=== PATIENT | female | born 1965 | race Caucasian/White ===

== ENCOUNTER 2017-01-24 15:43 | Emergency (ER) | payer SELFPAY ==
[~2017-01-24] VITALS: Ht 167.6 cm; Wt 108.9 kg
[~2017-01-24 15:43] MED LIST: VARE1TAB21 PO
[2017-01-24] MEDS ORDERED: IV NORMAL SALINE 1000ML BAG 1,000 ML IV SCH (16:41)
[2017-01-24] MEDS ORDERED: IBUPROFEN 400 MG TABLET. PO ONE (16:45)
[2017-01-24] MEDS ORDERED: FAMOTIDINE 20 MG/2 ML VIAL IVP ONE (16:45)
[2017-01-24] MEDS ORDERED: PROCHLORPERAZINE 10 MG/2 ML VIAL. IV ONE (16:45)
--- NOTE | 2017-01-24 16:48 | PHYS DOC ---
Past Medical History Past Medical History: Liver Disease, Other Additional Past Medical Histor: scoliosis, Hep B Past Surgical History: Appendectomy, Cholecystectomy, , Tubal ligation , Other Additional Past Surgical Histo: spleen removed Alcohol Use: None Drug Use: Marijuana Adult General Chief Complaint Chief Complaint: NAUSEA/VOMITING/DIARRHA HPI HPI Patient is a 52 year old female presents with nausea/vomiting/diarrhea. Patient reports for the past 24 hours she has been nauseous, vomiting frequently , and having diarrhea. No blood in stool or emesis. She does not have any abdominal pain, just says she feels queasy. She does report chills, cough, headache as well. She has tried Jasmin-Singer cold as well as Mucinex with insufficient relief. No other acute complaints. Review of Systems Review of Systems Constitutional: Chills, subjective fever Eyes: Denies change in visual acuity or eye pain HENT: Denies nasal congestion or sore throat Respiratory: Cough. Denies shortness of breath Cardiovascular: Denies chest pain GI: Nausea/vomiting/diarrhea. Denies abdominal pain, bloody stools : Denies dysuria or hematuria Musculoskeletal: Denies back pain or joint pain Integument: Denies rash or skin lesions Neurologic: Headache. Denies focal weakness or sensory changes Current Medications Current Medications Current Medications Medications (Trade) Dose Ordered Sig/Jose Start Time Stop Time Status Last Admin Dose Admin Famotidine (Pepcid) 20 mg 1X ONCE 01/24/17 16:45 01/24/17 16:46 DC 01/24/17 17:51 20 MG Ibuprofen (Motrin) 800 mg 1X ONCE 01/24/17 16:45 01/24/17 16:46 DC 01/24/17 18:01 800 MG Potassium Chloride (Klor-Con) 40 meq 1X ONCE 01/24/17 19:15 01/24/17 19:16 DC 01/24/17 19:13 40 MEQ Prochlorperazine Edisylate (Compazine) 10 mg 1X ONCE 01/24/17 16:45 01/24/17 16:46 DC 01/24/17 17:54 10 MG Sodium Chloride (Iv Sodium Chloride 0.9% 1000ml Bag) 1,000 ml @ 1,000 mls/hr Q1H 01/24/17 16:41 01/24/17 17:40 DC 01/24/17 17:51 1,000 MLS/HR Allergies Allergies Allergies Coded Allergies Type Severity Reaction Last Updated Verified mold Allergy Intermediate itchy, watery eyes 01/24/17 Yes egg Adverse Reaction Intermediate vomit 12/13/14 Yes Physical Exam Physical Exam Constitutional: Well developed, well nourished, no acute distress, non-toxic appearance HENT: Normocephalic, atraumatic, bilateral external ears normal Eyes: EOMI, conjunctiva normal, no discharge Neck: Normal range of motion, no stridor Cardiovascular: Heart rate normal, regular rhythm, no murmur Lungs & Thorax: Bilateral breath sounds clear to auscultation Abdomen: Bowel sounds normal, soft, non-distended, no TTP Skin: Warm, dry, no erythema, no rash Extremities: No obvious deformity, no edema Neurologic: Alert and oriented X 3, no gross deficits noted Psychologic: Affect normal, judgement normal, mood normal Current Patient Data Vital Signs Vital Signs Date Time Temp Pulse Resp B/P Pulse Ox O2 Delivery O2 Flow Rate FiO2 01/24/17 18:30 106 185/91 01/24/17 18:00 20 98 Room Air 01/24/17 15:47 99.3 99.3 Lab Values Laboratory Tests Test 01/24/17 17:00 01/24/17 17:06 01/24/17 18:00 White Blood Count 17.7x10^3/uL (4.0-11.0) H Red Blood Count 4.05x10^6/uL (3.50-5.40) Hemoglobin 12.6g/dL (12.0-15.5) Hematocrit 37.6% (36.0-47.0) Mean Corpuscular Volume 93fL (79-100) Mean Corpuscular Hemoglobin 31pg (25-35) Mean Corpuscular Hemoglobin Concent 34g/dL (31-37) Red Cell Distribution Width 15.0% (11.5-14.5) H Platelet Count 224x10^3/uL (140-400) Neutrophils (%) (Auto) 74% (31-73) H Lymphocytes (%) (Auto) 16% (24-48) L Monocytes (%) (Auto) 9% (0-9) Eosinophils (%) (Auto) 0% (0-3) Basophils (%) (Auto) 1% (0-3) Neutrophils # (Auto) 13.1x10^3uL (1.8-7.7) H Lymphocytes # (Auto) 2.8x10^3/uL (1.0-4.8) Monocytes # (Auto) 1.7x10^3/uL (0.0-1.1) H Eosinophils # (Auto) 0.0x10^3/uL (0.0-0.7) Basophils # (Auto) 0.2x10^3/uL (0.0-0.2) Urine Collection Type Unknown Urine Color Yellow Urine Clarity Clear Urine pH 7.5 Urine Specific [place] 1.020 Urine Protein 30mg/dL (NEG-TRACE) Urine Glucose (UA) Negativemg/dL (NEG) Urine Ketones (Stick) Tracemg/dL (NEG) Urine Blood Large (NEG) Urine Nitrite Negative (NEG) Urine Bilirubin Negative (NEG) Urine Urobilinogen Dipstick 1.0mg/dL (0.2 mg/dL) Urine Leukocyte Esterase Trace (NEG) Urine RBC 11-20/HPF (0-2) Urine WBC 1-4/HPF (0-4) Urine Squamous Epithelial Cells Few/LPF Urine Bacteria Few/HPF (0-FEW) Urine Mucus Slight/LPF Sodium Level 140mmol/L (136-145) Potassium Level 3.2mmol/L (3.5-5.1) L Chloride Level 103mmol/L (98-107) Carbon Dioxide Level 27mmol/L (21-32) Anion Gap 10 (6-14) Blood Urea Nitrogen 12mg/dL (7-20) Creatinine 0.9mg/dL (0.6-1.0) Estimated GFR (Cockcroft-Gault) 66.0 BUN/Creatinine Ratio 13 (6-20) Glucose Level 101mg/dL (70-99) H Calcium Level 9.3mg/dL (8.5-10.1) Total Bilirubin 0.3mg/dL (0.2-1.0) Aspartate Amino Transferase (AST) 23U/L (15-37) Alanine Aminotransferase (ALT) 38U/L (14-59) Alkaline Phosphatase 98U/L (46-116) Total Protein 8.2g/dL (6.4-8.2) Albumin 3.6g/dL (3.4-5.0) Albumin/Globulin Ratio 0.8 (1.0-1.7) L Lipase 67U/L (73-393) L POC Urine HCG, Qualitative Hcg negative (Negative) Influenza Type A Antigen Negative (NEGATIVE) Influenza Type B Antigen Negative (NEGATIVE) Laboratory Tests 01/24/17 17:00 Laboratory Tests 01/24/17 17:00 EKG EKG [] Radiology/Procedures Radiology/Procedures [] Course & Med Decision Making Course & Med Decision Making Pertinent Labs and Imaging studies reviewed. (See chart for details) Patient is 52-year-old female who presents with nausea/vomiting/diarrhea. No abdominal pain, no abdominal tenderness on exam. Likely viral illness. Will check labs, UA, influenza swab. IV fluid bolus, Compazine, Pepcid, ibuprofen ordered for relief of symptoms. Labs notable for leukocytosis, mild hypokalemia , otherwise unremarkable. Oral potassium replacement ordered. Discussed results with patient. Patient reports headache completely resolved, and she is feeling better. Has been able to tolerate PO while in the emergency department. We'll discharge home with prescription for anti-emetic, instructions for follow-up, return precautions. Dragon Disclaimer Dragon Disclaimer This electronic medical record was generated, in whole or in part, using a voice recognition dictation system. Departure Departure Impression: Primary Impression: Gastroenteritis Disposition: 01 HOME, SELF-CARE Condition: IMPROVED Referrals: KAREN BARBA MD (PCP) Patient Instructions: Viral Gastroenteritis Additional Instructions: Thank you for allowing us to provide care today in the Emergency Department. Take the provided medication as directed. Schedule a follow up appointment with your primary care doctor as soon as possible. Return promptly to the Emergency Department if you develop any new or concerning symptoms. Scripts Promethazine Hcl 25 Mg [id number] Mg PO Q6H PRN NAUSEA/VOMITING #15 TAB Prov:FELIX MICHEL MD 01/24/17 Ondansetron (Zofran Odt)4 Mg Tab.rapdis1 Tab SL Q8HRS PRN NAUSEA #15 TAB Prov:FELIX MICHEL MD 01/24/17 FELIX MICHEL MD Jan 24, 2017 16:48
[2017-01-24 17:14] LABS: BASO # 0.2 x10^3/uL (0.0-0.2); BASO % 1 % (0-3); EOS % 0 % (0-3); HEMATOCRIT 37.6 % (36.0-47.0); HEMOGLOBIN 12.6 g/dL (12.0-15.5); LYMPH # 2.8 x10^3/uL (1.0-4.8); LYMPH % 16 % (24-48); MEAN CORPUSCULAR HEMOGLOBIN 31 pg (25-35); MEAN CORPUSCULAR HGB CONC 34 g/dL (31-37); MEAN CORPUSCULAR VOLUME 93 fL (79-100); MONO % 9 % (0-9); NEUT % 74 % (31-73); PLATELET COUNT 224 x10^3/uL (140-400); RED BLOOD COUNT 4.05 x10^6/uL (3.50-5.40); WHITE BLOOD COUNT 17.7 x10^3/uL (4.0-11.0)
[2017-01-24 17:24] LABS: CALCIUM 9.3 mg/dL (8.5-10.1); CREATININE 0.9 mg/dL (0.6-1.0); POTASSIUM 3.2 mmol/L (3.5-5.1)
[2017-01-24 17:28] LABS: BILIRUBIN,URINE NEGATIVE (NEG); GLUCOSE,URINE NEGATIVE (NEG); NITRITE,URINE NEGATIVE (NEG); PH,URINE 7.5; PROTEIN,URINE 30 mg/dL (NEG-TRACE)
[2017-01-24 17:30] LABS: ALBUMIN 3.6 g/dL (3.4-5.0); ALBUMIN/GLOBULIN RATIO 0.8 (1.0-1.7); TOTAL BILIRUBIN 0.3 mg/dL (0.2-1.0); TOTAL PROTEIN 8.2 g/dL (6.4-8.2)
[2017-01-24 17:35] LABS: BACTERIA,URINE FEW /HPF (0-FEW); SQUAMOUS EPITHELIAL CELL,UR FEW /LPF
[2017-01-24 18:30] VITALS: BP 185/91
[2017-01-24 18:46] LABS: OBC FLU VALID
[2017-01-24] MEDS ORDERED: PROM25TA10 PO (19:13)
[2017-01-24] MEDS ORDERED: ONDA4TAB10 SL (19:13)
[2017-01-24] MEDS ORDERED: POTASSIUM CHLORIDE 20 MEQ TABLET.ER. PO ONE (19:15)
== END 2017-01-24 19:20 | disposition home or self-care (01) ==
LOC: ER 15:43
DX: K52.9 Noninfective gastroenteritis and colitis, unspecified (principal); F12.10 Cannabis abuse, uncomplicated; Z90.49 Acquired absence of other specified parts of digestive tract; Z98.51 Tubal ligation status; Z91.012 Allergy to eggs; Z91.048 Other nonmedicinal substance allergy status
CPT/HCPCS: 36415; 80053; 81001; 81025; 83690; 85027; 87086; 87804; 96361; 96374; 96375; 99284; J0780; J7030; S0028

== ENCOUNTER 2018-08-10 05:46 | Emergency (ER) | payer SELFPAY ==
[~2018-08-10] VITALS: Ht 172.7 cm; Wt 81.6 kg
[~2018-08-10 05:46] MED LIST changes: +ONDA4TAB10 SL; +PROM25TA10 PO
[2018-08-10] MEDS: KETOROLAC 30 MG/ML VIAL. IM ONE (06:57)
--- NOTE | 2018-08-10 07:05 | PHYS DOC ---
Past Medical History Past Medical History: Liver Disease, Other Additional Past Medical Histor: scoliosis, Hep B Past Surgical History: Appendectomy, Cholecystectomy, , Tubal ligation , Other Additional Past Surgical Histo: spleen removed Alcohol Use: None Drug Use: Marijuana Adult General Chief Complaint Chief Complaint: HIP PAIN HPI HPI Patient is a 53 year old female was presenting with right lower back pain radiating to the right groin in the anterior right thigh cramping and burning 2 weeks worse with time better with standing it started after she twisted the wrong way but she did not fall to the ground. She has a history of sciatica and scoliosis in the past no abdominal pain no fever no urinary symptoms no relief with [id number] agents Review of Systems Review of Systems Constitutional: Denies fever or chills [] Eyes: Denies change in visual acuity, redness, or eye pain [] HENT: Denies nasal congestion or sore throat [] GI: Denies abdominal pain, nausea, vomiting, bloody stools or diarrhea [] : Denies dysuria or hematuria [] Musculoskeletal: D] Integument: Denies rash or skin lesions [] Neurologic: Denies headache, focal weakness or sensory changes [] All other systems were reviewed and found to be within normal limits, except as documented in this note. Current Medications Current Medications Current Medications Medications (Trade) Dose Ordered Sig/Jose Start Time Stop Time Status Last Admin Dose Admin Ketorolac Tromethamine (Toradol 30mg Vial) 30 mg 1X ONCE 08/10/18 06:45 08/10/18 06:46 DC 08/10/18 06:57 30 MG Allergies Allergies Allergies Coded Allergies Type Severity Reaction Last Updated Verified mold Allergy Intermediate itchy, watery eyes 01/24/17 Yes egg Adverse Reaction Intermediate vomit 12/13/14 Yes Physical Exam Physical Exam Constitutional: Well developed, well nourished, no acute distress, non-toxic appearance. [] HENT: Normocephalic, atraumatic, bilateral external ears normal, oropharynx moist, no oral exudates, nose normal. [] Eyes: PERRLA, EOMI, conjunctiva normal, no discharge. [] Neck: Normal range of motion, no tenderness, supple, no stridor. [] Pulmonary: Normal respiratory effort no increased work of breathing no obvious chest wall trauma Abdomen: soft, no tenderness, no masses, no pulsatile masses. [] Skin: Warm, dry, no erythema, no rash. [] Back: There is tenderness to palpation of the right low back no midline tenderness. Extremities: No tenderness, no cyanosis, no clubbing, ROM intact, no edema. [] No groin swelling pedal pulses are intact strength and sensation is intact Neurologic: Alert and oriented X 3, normal motor function, normal sensory function, no focal deficits noted. [] Psychologic: Affect normal, judgement normal, mood normal. [] Current Patient Data Vital Signs Vital Signs Date Time Temp Pulse Resp B/P (MAP) Pulse Ox O2 Delivery O2 Flow Rate FiO2 08/10/18 05:55 97.8 77 18 144/89 (107) 98 Room Air 97.8 EKG EKG [] Radiology/Procedures Radiology/Procedures [] Course & Med Decision Making Course & Med Decision Making Pertinent Labs and Imaging studies reviewed. (See chart for details) []53-year-old female presenting with low back pain with radiation to the groin and the anterior right thigh suggestive of diverticular pain. Patient has a normal neuro exam she is ambulatory she was given prescription for anti- inflammatory and short course of Theresa she knows this is a short-term treatment. She was advised to get blood pressure follow-up within 1 month she was advised to follow-up with the clinic if her pain should not improve or more advanced imaging. No indication for plain films there was no trauma pain is been less than a month. No fever Dragon Disclaimer Dragon Disclaimer This electronic medical record was generated, in whole or in part, using a voice recognition dictation system. Departure Departure Impression: Primary Impression: Elevated blood pressure reading Additional Impression: Sciatic leg pain Disposition: HOME, SELF-CARE Condition: IMPROVED Patient Instructions: Sciatica, [id number] Problem Qualifiers DONNIE PIERCE MD Aug 10, 2018 07:05
== END 2018-08-10 07:04 | disposition home or self-care (01) ==
LOC: ER 05:46
DX: M54.41 Lumbago with sciatica, right side (principal); R03.0 Elevated blood-pressure reading, without diagnosis of hypertension; Z90.49 Acquired absence of other specified parts of digestive tract; Z90.89 Acquired absence of other organs; Z98.890 Other specified postprocedural states; Z98.51 Tubal ligation status; Z91.012 Allergy to eggs; Z91.048 Other nonmedicinal substance allergy status
CPT/HCPCS: 96372; 99283; J1885

== ENCOUNTER 2020-11-25 10:29 | Emergency (ER) | payer SELFPAY ==
[2018-08-10 05:55] VITALS: BP 144/89
== END 2020-11-25 10:35 | disposition left against medical advice (07) ==
LOC: ER 10:29
DX: M25.532 Pain in left wrist (principal); Z53.21 Procedure and treatment not carried out due to patient leaving prior to being seen by health care provider

== ENCOUNTER 2020-12-16 22:24 | Emergency (ER) | payer SELFPAY ==
[~2020-12-16] VITALS: Ht 167.6 cm; Wt 104.5 kg
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
[2020-12-16 23:35] VITALS: BP 151/89
== END 2020-12-16 23:35 | disposition home or self-care (01) ==
LOC: ER 22:24
DX: G89.11 Acute pain due to trauma (principal); I10 Essential (primary) hypertension; F12.90 Cannabis use, unspecified, uncomplicated; G89.29 Other chronic pain; Z90.49 Acquired absence of other specified parts of digestive tract; Z90.89 Acquired absence of other organs; Z98.51 Tubal ligation status; Z91.012 Allergy to eggs; Z88.8 Allergy status to other drugs, medicaments and biological substances; Z98.890 Other specified postprocedural states; Y08.89XA Assault by other specified means, initial encounter; Y93.89 Activity, other specified; Y92.89 Other specified places as the place of occurrence of the external cause; Y99.8 Other external cause status
CPT/HCPCS: 99281; 99283